=== PATIENT | female | born 2000 | race Hispanic/Latino ===

== ENCOUNTER 2021-01-23 18:19 | Emergency (ER) | payer MEDICAID, OTHER ==
[2021-01-23 19:38] LABS: #Monocytes 0.5 10x3/uL (0.0-1.1); #Neutrophils 6.3 10x3/uL (1.5-8.4); %Basophils 0.1 % (0.0-2.0); %Eosinophils 0.2 % (0.0-6.0); %Monocytes 4.9 % (0.0-10.0); %Neutrophils 66.5 % (40.0-75.0); Hemoglobin 12.9 g/dL (12.0-15.5); Mean Corpuscular HGB CONC 33.2 g/dL (32.0-36.0); Mean Corpuscular Volume 87.2 fl (81.6-98.3); Mean Platelet Volume 9.7 fl (7.4-10.4); Platelet Count 379 10x3/uL (150-450); RBC Distribution Width 13.2 % (11.5-14.5); Red Blood Cell (RBC) Count 4.45 10x6/uL (3.90-5.03); White Blood Cell (WBC) Count 9.5 10x3/uL (3.5-10.5)
[2021-01-23 19:54] LABS: ALT (SGPT) 20 U/L (8-55); AST (SGOT) 16 U/L (5-34); Albumin 4.3 g/dL (3.5-5.0); Alkaline Phosphatase 51 U/L (40-110); Anion Gap 13 mmol/L (10-20); BUN (Urea Nitrogen) 10 mg/dL (7.0-18.7); Bilirubin, Total 0.3 mg/dL (0.2-1.2); Calc. Creatinine Clearance 0 mL/min (70-130); Calcium 9.2 mg/dL (7.8-10.44); Carbon Dioxide 21 mmol/L (22-29); Chloride 108 mmol/L (98-107); Globulin 3.4 g/dL (2.4-3.5); Glucose 95 mg/dL (70-105); Potassium 3.7 mmol/L (3.5-5.1); Protein, Total 7.7 g/dL (6.0-8.3); Sodium 138 mmol/L (136-145)
== END 2021-01-23 21:01 | disposition home or self-care (01) ==
LOC: CSHERS 18:19
DX: O20.9 Hemorrhage in early pregnancy, unspecified (principal); Z3A.12 12 weeks gestation of pregnancy
CPT/HCPCS: 76856; 80053; 84702; 85025; 86900; 86901

== ENCOUNTER 2022-06-21 08:28 | Inpatient (IN) | payer MEDICAID, OTHER ==
[2022-06-20 18:10] LABS: Hemoglobin 12.9 g/dL (12.0-15.5); Platelet Count 299 10x3/uL (150-450)
[2022-06-20 18:43] LABS: Syphilis Antibody Nonreactive (Nonreactive); Syphilis Antibody Index 0.05 S/CO (<1.00 Non-Reactive)
[2022-06-20 18:44] LABS: HBSAg Index 0.29 S/CO (0-0.99); Hep B Surf Ag Non-Reactive S/CO (NonReactive)
[2022-06-21] MEDS ORDERED: Famotidine/PF 20 mg/2ml Vial SLOW IVP PRN (10:02)
[2022-06-21] MEDS ORDERED: Methylergonovine 0.2 MG/ML VIAL IM PRN ×2 (10:02→15:11)
[2022-06-21] MEDS ORDERED: Bicitra 30 ML UDCUP PO PRN (10:02)
[2022-06-21] MEDS ORDERED: hydrALAZINE 20 MG/ML VIAL SLOW IVP PRN ×2 (10:02→15:11)
[2022-06-21] MEDS ORDERED: Promethazine HCl 25 MG/ML VIAL IM PRN ×3 (10:02→15:11)
[2022-06-21] MEDS ORDERED: Diphenoxylate HCl/Atropine Tablet PO PRN (10:02)
[2022-06-21] MEDS ORDERED: Ondansetron PF 4 MG/2 ML Vial IVP PRN ×3 (10:02→15:11)
[2022-06-21] MEDS ORDERED: Tranexamic Acid 1,000 MG/10 ML VIAL IVP PRN (10:02)
[2022-06-21] MEDS ORDERED: Misoprostol 200 MCG TAB PR PRN ×2 (10:02→15:11)
[2022-06-21] MEDS ORDERED: Carboprost 250 MCG/ML AMP IM PRN (10:02)
[2022-06-21] MEDS ORDERED: NS w/ Oxytocin 30 units 500 ML IV SCH ×2 (10:15→15:11)
[2022-06-21] MEDS ORDERED: Lactated Ringer's 1,000 ML IV SCH (10:15)
[2022-06-21] MEDS ORDERED: CEFAZOLIN 2 GM in Sodium Chloride 0.9% 100 ML IVPB SCH (10:15)
[2022-06-21 10:28] VITALS: BMI 33.0
[2022-06-21] MEDS ORDERED: Morphine PF 10 MG/10 ML VIAL ONE (11:49)
[2022-06-21] MEDS ORDERED: Oxytocin 10 UNITS/ML VIAL ONE (11:50)
[2022-06-21] MEDS ORDERED: diphenhydrAMINE 50 MG/ML VIAL IVP PRN (11:57)
[2022-06-21] MEDS ORDERED: Promethazine HCl 25 MG SUPP PR PRN (11:57)
[2022-06-21] MEDS ORDERED: Fentanyl 100 MCG/2 ML VIAL SLOW IVP PRN (11:57)
[2022-06-21] MEDS ORDERED: Naloxone HCl 0.4 mg/ml Vial IV PRN (11:57)
[2022-06-21] MEDS ORDERED: Meperidine HCl/PF 25 MG/ML VIAL SLOW IVP PRN (11:57)
[2022-06-21] MEDS ORDERED: Ondansetron HCl/PF 4 MG/2 ML Vial IVP PRN (11:57)
[2022-06-21] MEDS ORDERED: Naloxone HCl 0.4 mg/ml Vial IVP PRN ×2 (11:57)
[2022-06-21] MEDS ORDERED: Moisturizing Cream (Eucerin) 113 GM JAR TOP PRN (11:57)
[2022-06-21] MEDS ORDERED: Ketorolac Tromethamine 30 MG/ML VIAL IVP SCH (12:00)
[2022-06-21] MEDS ORDERED: Communication Order-Pharmacy FS SCH (12:00)
[2022-06-21] MEDS: Ketorolac Tromethamine 30 MG/ML VIAL IVP PRN (13:32)
[2022-06-21] MEDS ORDERED: Boostrix 0.5 ML (Tdap) VIAL (>/=7 yrs of age) IM ONE (15:11)
[2022-06-21] MEDS ORDERED: Bisacodyl 10 MG SUPP PR PRN (15:11)
[2022-06-21] MEDS: Lactated Ringer's 1,000 ML IV SCH ×2 (16:14→23:54)
[2022-06-21] MEDS: Docusate 100 MG CAP PO SCH (20:24)
[2022-06-21] MEDS: Ferrous Sulfate 325 MG TAB PO SCH (23:20)
[2022-06-21] MEDS ORDERED: HYDROcodone/Acetaminophen 5/325 mg Tablet PO PRN ×2 (23:59)
[2022-06-22] MEDS: Ketorolac Tromethamine 30 MG/ML VIAL IVP PRN (04:07)
[2022-06-22 04:58] LABS: Hemoglobin 10.7 g/dL (12.0-15.5); Mean Corpuscular HGB CONC 32.8 g/dL (32.0-36.0); Mean Corpuscular Hemoglobin 28.9 pg (27.0-33.0); Mean Corpuscular Volume 88.1 fl (81.6-98.3); Mean Platelet Volume 10.1 fl (7.4-10.4); Platelet Count 256 10x3/uL (150-450); RBC Distribution Width 15.2 % (11.5-14.5)
[2022-06-22] MEDS: Ferrous Sulfate 325 MG TAB PO SCH ×2 (07:57→21:29)
[2022-06-22] MEDS: Lactated Ringer's 1,000 ML IV SCH ×3 (07:57→23:30)
[2022-06-22] MEDS: Docusate 100 MG CAP PO SCH ×2 (09:16→21:27)
[2022-06-22] MEDS: Prenatal Vitamin 1 TAB PO SCH (09:16)
[2022-06-22] MEDS: Ibuprofen 800 MG TAB PO SCH ×2 (14:10→21:27)
[2022-06-22] MEDS: Simethicone Chewable 80 MG TAB PO PRN ×2 (14:21→21:27)
[2022-06-23] MEDS: Simethicone Chewable 80 MG TAB PO PRN (05:18)
[2022-06-23] MEDS: Ibuprofen 800 MG TAB PO SCH (05:18)
[2022-06-23] MEDS: Ferrous Sulfate 325 MG TAB PO SCH (07:11)
[2022-06-23 07:48] VITALS: BP 108/59; TEMP 98
[2022-06-23] MEDS: Docusate 100 MG CAP PO SCH (08:57)
[2022-06-23] MEDS: Prenatal Vitamin 1 TAB PO SCH (08:57)
== END 2022-06-23 10:40 | disposition home or self-care (01) | DRG 788 ==
LOC: CSHLD 10:03 → CSHPP 15:19
PROVIDERS: ADMIT Obstetrics & Gynecology; ATTEND Obstetrics & Gynecology
PROC: 10D00Z1 Extraction of Products of Conception, Low, Open Approach (ICD-10-PCS; principal; 2022-06-21)
DX: O41.03X0 Oligohydramnios, third trimester, not applicable or unspecified (principal); Z3A.37 37 weeks gestation of pregnancy; Z37.0 Single live birth; O34.211 Maternal care for low transverse scar from previous cesarean delivery; Z79.899 Other long term (current) drug therapy; O99.02 Anemia complicating childbirth; D64.9 Anemia, unspecified
CPT/HCPCS: 36415; 51702; 85014; 85018; 85027; 85049; 86780; 86850; 86900; 86901; 87340; J1885; J2274; J2590; J3490; J7120